=== PATIENT | female | born 1935 | race Caucasian/White ===

== ENCOUNTER → 2017-01-10 | Outpatient (CLI) | payer MEDICARE, BC ==
[2014-07-13 21:11] VITALS: BP 140/70
[~2017-01-10] MED LIST: CELEBREX200 MG PO; CRESTOR5 MG PO; GOOD SENSE ASPI81 M1 PO; LUTEIN20 MG PO; PRINIVIL10 MG PO
== END ==
LOC: RAD 15:45
DX: R20.0 Anesthesia of skin (principal); I35.0 Nonrheumatic aortic (valve) stenosis; I34.0 Nonrheumatic mitral (valve) insufficiency

== ENCOUNTER → 2017-01-23 | Outpatient (CLI) | payer MEDICARE, BC ==
[2014-07-13 21:11] VITALS: BP 140/70
== END ==
LOC: CARDLAB 01-10 15:58 → PT 01-10 15:58 → CARDREHAB 01-11 16:25
DX: R07.9 Chest pain, unspecified (principal); I10 Essential (primary) hypertension
CPT/HCPCS: A9500

== ENCOUNTER → 2017-07-08 | Outpatient (CLI) | payer MEDICARE, BC ==
[2014-07-13 21:11] VITALS: BP 140/70
== END ==
LOC: RAD 14:42
DX: R41.82 Altered mental status, unspecified (principal)

== ENCOUNTER → 2017-07-17 | Outpatient (CLI) | payer MEDICARE, BC ==
[2014-07-13 21:11] VITALS: BP 140/70
== END ==
LOC: MAMMO 08:21 → RAD 08:30
DX: Z12.31 Encounter for screening mammogram for malignant neoplasm of breast (principal)

== ENCOUNTER 2017-07-18 09:00 | Outpatient (RCR) | payer MEDICARE, BC ==
[2014-07-13 21:11] VITALS: BP 140/70
== END 2017-07-18 09:30 | disposition home or self-care (01) ==
LOC: PT 09:00
DX: M25.571 Pain in right ankle and joints of right foot (principal)
CPT/HCPCS: G8978-GP; G8979-GP

== ENCOUNTER → 2018-02-20 | Outpatient (CLI) | payer MEDICARE, BC ==
[2014-07-13 21:11] VITALS: BP 140/70
== END ==
LOC: RAD 15:41
DX: I35.0 Nonrheumatic aortic (valve) stenosis (principal); I51.9 Heart disease, unspecified; R00.2 Palpitations

== ENCOUNTER → 2018-04-01 | Day surgery (SDC) | payer MEDICARE, BC ==
[2014-07-13 21:11] VITALS: BP 140/70
== END ==
LOC: MSO 08:08
DX: K21.9 Gastro-esophageal reflux disease without esophagitis (principal); R10.9 Unspecified abdominal pain; K57.30 Diverticulosis of large intestine without perforation or abscess without bleeding; K63.5 Polyp of colon; R11.0 Nausea; R07.89 Other chest pain; Z79.82 Long term (current) use of aspirin; Z79.899 Other long term (current) drug therapy
CPT/HCPCS: 00813; A4649; J2704; J7120

== ENCOUNTER 2018-08-27 15:57 | Emergency (ER) | payer MEDICARE, BC ==
[~2018-08-27] VITALS: Ht 152.4 cm; Wt 86.0 kg
[2018-08-27] MEDS ORDERED: VESICARE10 MG PO (16:17)
[2018-08-27] MEDS ORDERED: GOOD NEIGHBOR P20 M1 PO (16:18)
[2018-08-27] MEDS ORDERED: TOBRAMYCIN AND D5 ML (16:18)
[2018-08-27] MEDS ORDERED: PAROXETINE HYDR10 MG PO (16:19)
[2018-08-27] MEDS ORDERED: MAGNESIUM100 M1 PO (16:19)
[2018-08-27 17:18] LABS: EOS % 0.4 % (1.0-5.0); HEMATOCRIT 36.5 % (37.0-47.0); HEMOGLOBIN 11.5 g/dL (12.5-16.0); LYMPH# 1.3 (1.50-4.00); MEAN CELL VOLUME 95 fl (78-100); MEAN CORPUSCULAR HEMOGLOBIN 30 pg (27-31); MEAN CORPUSCULAR HGB CONC 32 g/dL (33-37); MEAN PLATELET VOLUME 9.4 fl (7.4-10.4); NEU # 7.7 (1.40-6.50); PLATELET COUNT 178 K/mm3 (130-400); RED BLOOD COUNT 3.86 M/mm3 (4.10-5.30); RED CELL DISTRIBUTION WIDTH 13.7 % (11.5-14.5); WHITE BLOOD COUNT 10.1 K/mm3 (4.8-10.8)
[2018-08-27 17:25] LABS: ALBUMIN 3.9 g/dL (3.5-5.0); CALCIUM 8.8 mg/dL (8.4-10.2); POTASSIUM 3.9 mmol/L (3.6-5.0); TOTAL BILIRUBIN 0.8 mg/dL (0.2-1.3); TOTAL PROTEIN 6.7 g/dL (6.3-8.2)
[2018-08-27] MEDS ORDERED: MAG-OX 400400 MG/TAB PO (17:45)
[2018-08-27] MEDS ORDERED: MULTI-VITAMIN W1 TA1 PO (17:47)
[2018-08-27] MEDS ORDERED: PROBIOTIC1 EAC1 PO (17:48)
[2018-08-27 18:03] LABS: URINE APPEARANCE CLEAR; URINE COLOR YELLOW
[2018-08-27 18:04] LABS: URINE BILIRUBIN NEGATIVE (NEGATIVE); URINE BLOOD TRACE (NEGATIVE); URINE GLUCOSE NEGATIVE (NEGATIVE); URINE KETONE NEGATIVE (NEGATIVE); URINE LEUKOCYTE ESTERASE TRACE (NEGATIVE); URINE NITRATE NEGATIVE (NEGATIVE); URINE PROTEIN(semi-quant) TRACE mg/dL (NEGATIVE); URINE UROBILINOGEN NORMAL (NORMAL)
[2018-08-27] MEDS ORDERED: AUGMENTIN 875-1 EAC1 PO (18:41)
[2018-08-27 18:53] VITALS: BP 151/86
== END 2018-08-27 18:54 | disposition home or self-care (01) ==
LOC: ED 15:57
PROVIDERS: Physician Assistant
DX: L03.114 Cellulitis of left upper limb (principal); Z79.82 Long term (current) use of aspirin; Z96.611 Presence of right artificial shoulder joint; Z90.49 Acquired absence of other specified parts of digestive tract; Z90.710 Acquired absence of both cervix and uterus; Z86.79 Personal history of other diseases of the circulatory system; W55.03XA Scratched by cat, initial encounter
CPT/HCPCS: 90714; A4216; J0696; J7030

== ENCOUNTER 2019-01-14 10:00 | Outpatient (RCR) | payer MEDICARE, BC ==
[~2019-01-14 10:00] MED LIST changes: +AUGMENTIN 875-1 EAC1 PO; +GOOD NEIGHBOR P20 M1 PO; +MAG-OX 400400 MG/TAB PO; +MAGNESIUM100 M1 PO; +MULTI-VITAMIN W1 TA1 PO; +PAROXETINE HYDR10 MG PO; +PROBIOTIC1 EAC1 PO; +TOBRAMYCIN AND D5 ML; +VESICARE10 MG PO
== END 2019-01-14 10:30 | disposition still patient (30) ==
LOC: PT 10:00
DX: R29.898 Other symptoms and signs involving the musculoskeletal system (principal)

== ENCOUNTER → 2019-06-03 | Outpatient (CLI) | payer MEDICARE, BC ==
[2019-01-08 20:00] VITALS: BP 140/79
== END ==
LOC: MAMMO 09:12
DX: Z12.31 Encounter for screening mammogram for malignant neoplasm of breast (principal)

== ENCOUNTER → 2019-07-13 | Outpatient (CLI) | payer MEDICARE, BC ==
[2019-01-08 20:00] VITALS: BP 140/79
== END ==
LOC: RAD 13:46
DX: N28.1 Cyst of kidney, acquired (principal); M47.816 Spondylosis without myelopathy or radiculopathy, lumbar region; M43.17 Spondylolisthesis, lumbosacral region; Z90.49 Acquired absence of other specified parts of digestive tract
CPT/HCPCS: Q9967